=== PATIENT | female | born 1945 | race Caucasian/White ===

== ENCOUNTER → 2022-02-22 07:07 | Outpatient (CLI) | payer MEDICARE, OTHER, SELFPAY ==
--- NOTE | 2022-02-22 07:13 | DI.US.S_ITS ---
PROCEDURE: US PELVIC COMPLETE INDICATIONS: CYST TECHNIQUE: Real-time scanning was performed of the pelvic organs, with image documentation. Additional endovaginal scanning was necessary due to incomplete visualization of the adnexal and endometrial structures by transabdominal scanning. COMPARISON: None available. FINDINGS: Uterus: Uterus is anteverted and normal in size at 6.5 x 4.4 x 3 cm. The myometrium is heterogeneous. The endometrium measures 1.1 cm combined thickness. Endometrium has a heterogeneous appearance. No fibroids identified. Ovaries: Left ovarian multiloculated or thin septated cyst measuring 7.2 x 6.7 x 6.4 cm. No definite internal vascularity is seen. The larger cyst measures 6.6 cm and is anechoic. No mural nodule identified. Right ovary is not identified. Other: No pathologic free abdominal or pelvic fluid. IMPRESSION: 1. Abnormal endometrial thickening in this postmenopausal patient measuring 1.1 cm. -Recommend endometrial biopsy if not recently performed. 2. Large left ovarian multiloculated or mildly complex cyst measuring 7.2 cm. -This could be further evaluated with pelvic MRI with IV contrast. Excision could also be considered given its large size. 3. Right ovary is not seen. We strive to produce accurate, complete, and clear reports of imaging services. To assist us in improving patient care, this report was composed using standard report templates and voice recognition software. Therefore, it may contain abnormal punctuation, insertions and/or omissions. Occasional wrong-word or sound-alike substitutions may occur. Though we review the report and make efforts to correct it, we do recommend that the report be read carefully in proper context to recognize any text inaccuracies. Dictated by: Jefferson Locke M.D. on 02/22/2022 at 11:17 Approved by: Jefferson Locke M.D. on 02/22/2022 at 11:26
== END ==
PROVIDERS: Visit Provider Obstetrics & Gynecology
DX: R93.89 Abnormal findings on diagnostic imaging of other specified body structures (principal); N83.292 Other ovarian cyst, left side; R10.9 Unspecified abdominal pain
CPT/HCPCS: 76830; 76856

== ENCOUNTER → 2022-04-04 09:55 | Outpatient (CLI) | payer MEDICARE, OTHER, SELFPAY ==
[2022-04-04 10:24] LABS: COVID19 -Nasal RAPID Negative (Negative)
== END ==
PROVIDERS: Visit Provider Obstetrics & Gynecology
DX: Z20.822 Contact with and (suspected) exposure to COVID-19 (principal); Z01.812 Encounter for preprocedural laboratory examination
CPT/HCPCS: 87635; C9803

== ENCOUNTER 2022-04-05 06:33 | Day surgery (SDC) | payer MEDICARE, OTHER, SELFPAY ==
[2022-04-02 08:24] VITALS: BMI 33.5
[2022-04-05] VITALS (7 sets, daily range): BP systolic 105–139; BP diastolic 52–78; PULSE 67–90; RESP 1–20; TEMP 36.3–36.8; O2SAT 90–97; BMI 33.5
--- NOTE | 2022-04-05 | PATH_ITS ---
Note [facility] Accession Number: [id number] TESTS RESULT FLAG UNITS REF RANGE LAB Clinician Provided Cytology Information No. of containers..01 Other (Miscellaneous) Source: PELVIC CELL WASHINGS Clinician ICD10: R10.32 N83.202 DIAGNOSIS: PELVIC CELL WASHINGS NEGATIVE FOR MALIGNANT CELLS. THIS INTERPRETATION INCLUDES EVALUATION OF A CELL BLOCK. Pathologist ICD10: R10.32, N83.202 Signed out by: Kayla Pettit MD, Pathologist NPI- [id number] Performed by: Omid Mckeon, Rn Liaison ([facility]) Gross description: 20 CC, COLORLESS, CLEAR RECEIVED: FRESH IN ORANGE CAP CONTAINER. /[facility] 04/08/2022 1323 Local FLAG LEGEND: L-Low Normal,H-High Normal,LL-Alert Low,HH-Alert High <-Panic Low,>-Panic High,A-Abnormal,AA-Critical Abnormal Performed at: 01 =[facility] [address], [place] [address] Tito Reyez MD, Performed at: 01 [facility] [address], [place], [place] [id number] MD Tito Reyez MD Phone: [phone]
[2022-04-05] MEDS: LACTATED RINGERS 1,000 ML 100 ML IV (07:40)
--- NOTE | 2022-04-05 08:02 | PM.PREOP ---
Pre-operative Note COVID-19 COVID-19 status: Negative Result date/Date tested (Pos, Neg/Pending): 04/04/22 Criteria for continued procedure: Non-surgical alternatives not available or appropriate per current SOC Interval Note History & Physical reviewed/Exam performed by Physician: Yes Changes to H&P: No
[2022-04-05] MEDS: ACETAMINOPHEN IV 1,000 MG/100 ML VIAL 400 MG IV (09:02)
--- NOTE | 2022-04-05 09:18 | SUR.OPER ---
Lithotomy on padded OR bed, head on pillow, arms secured with gel pads and draw sheet. Legs secured in padded yellow fins stirrups.
[2022-04-05] MEDS: BUPIVACAINE 0.5% W/ EPI (PF) 30 ML VIAL INJ (09:29)
--- NOTE | 2022-04-05 10:41 | PM.GYNOP.1 ---
Operative Date/Time/Diagnoses Date of procedure: 04/05/22 Time of procedure: 09:50 Pre-op diagnosis: Left ovarian cyst Endometrial thickening Post-op diagnosis: same Procedure & Clinicians Procedure: Procedures Operation Date: 04/05/22 07:45 Actual Procedure Side Surgeon p Laparoscopic Salpingo-oophorectomy Bilateral Derrick Mason MD s Dilation and Curettage of the uterus Not Applicable Derrick Mason MD Indications: Tatyana is a 76-year-old , LMP between age 47 and 52 at the time of menopause who presents today with a 2 month history of left lower quadrant pain.? As part of her evaluation, the patient underwent an abdominal pelvic CT scan at [facility] on 02/07/2022 which showed a 6.6 by 7.6 x 6.5 cystic structure within the left adnexa possibly involving the left ovary concerning for neoplasm of ovarian origin.? No gross abnormality was seen in the uterus or right ovary.? Subsequent pelvic ultrasound performed on 02/22/2022 shows: FINDINGS:? ?? Uterus:? Uterus is anteverted and normal in size at 6.5 x 4.4 x 3 cm. The myometrium is heterogeneous. ? The endometrium measures 1.1 cm combined thickness.? Endometrium has a heterogeneous appearance.? No fibroids identified. ? Ovaries:? Left ovarian multiloculated or thin septated cyst measuring 7.2 x 6.7 x 6.4 cm. ?No definite internal vascularity is seen.? The larger cyst measures 6.6 cm and is anechoic.? No mural nodule identified.? Right ovary is not identified. ? Other:? No pathologic free abdominal or pelvic fluid. ? ? IMPRESSION:? 1. Abnormal endometrial thickening in this postmenopausal patient measuring 1.1 cm. -Recommend endometrial biopsy if not recently performed. ? 2. Large left ovarian multiloculated or mildly complex cyst measuring 7.2 cm.? -This could be further evaluated with pelvic MRI with IV contrast.? Excision could also be considered given its large size.? ? 3. Right ovary is not seen. CA 125 was apparently drawn by her primary care provider and is reported as 17.? Endometrial biopsy performed 02/26/2022 due to thickened endometrial stripe and the biopsy showed predominantly mucin with scant minute fragments of benign inactive glandular endometrial-type epithelium and rare endocervical cells.? No significant cytologic atypia and no malignancy identified.? She also denies any current or former use of hormone replacement therapy. The patient's pain has been present for a few months and she describes it as a dull discomfort which is intermittent and localized to the left lower quadrant.? She is noted no associated bowel or symptoms.? She does have occasional stress urinary incontinence and occasional urge incontinence.? Patient's last colonoscopy was in 2018 and no polyps or other abnormalities were seen at that time.? Patient has a past history of breast cancer on the right side in 2004 which was treated with mastectomy and chemo/radiation.? Patient has no family history of ovarian cancer. After consideration of all options, the patient has decided to move forward with laparoscopic bilateral salpingo-oophorectomy and due to the scant nature of the endometrial biopsy in the face of thickened endometrium, dilation and curettage will also be performed.? She presents today for her scheduled surgery. Surgeon: Derrick Mason Anesthesia Type: General Operative Notes Findings: 7-8 cm left ovary containing a smooth walled cyst containing clear viscous fluid. Right ovary is normal. Uterus is normal in size and sounds to 7 cm. Scan ECC and minimal EMC obtained. The abdominal cavity is normal to laparoscopic visualization. Atrophic vaginitis is present. A second-degree cystocele is noted with first-degree uterovaginal descent. Closure Type: primary Specimen(s): endometrial curettings, left tube & ovary, right tube & ovary and other (Endocervical curettings) Estimated blood loss (mL): 25 Blood products transfused: none Procedure in detail: With the patient under satisfactory general anesthesia in the modified dorsal lithotomy position, perineum, vagina, and abdomen were prepped and draped in the usual fashion for vaginal and laparoscopic surgery. A pre-surgical safety time-out was then taken in accordance with [facility] Main OR protocols. The umbilicus was infiltrated with 0.5% Marcaine with epinephrine and a 3 cm vertical incision was made in the skin of the inferior umbilicus. The dissection was carried down to the fascia which is incised transversely and stay sutures were placed at both angles. The dissection was carried down through the preperitoneal fat into the abdominal cavity and a March cannula was placed. The abdomen was then insufflated with carbon dioxide and 5 mm trocar and sleeves were placed in the left and right mid quadrant after infiltration with 0.5% Marcaine with epinephrine through 1 cm incisions. Using a 3 puncture technique the pelvis and abdomen were visualized with the findings as noted previously. Pelvic cell washings were taken and submitted. The fallopian tube on the left-hand side was grasped so as to elevate ovary and expose the infundibulopelvic ligament on the left. The infundibulopelvic ligament was then coagulated divided with a PowerSeal device and the dissection was carried across the mesosalpinx to the cornua where the tube and utero-ovarian ligament were coagulated and divided. Attention was then turned to the right side and the distal tube was elevated so as to expose the infundibulopelvic ligament on the right. The infundibulopelvic ligament was then coagulated and divided with the PowerSeal device and the dissection was carried across the mesosalpinx to the cornua where the proximal tube and utero-ovarian ligament were coagulated and divided. A large Endo-Catch bag was then used to retrieve the specimens and bring them up through the umbilical incision. The fluid from within the larger cyst was drained and evacuated within the bag so as to bring the specimens through the umbilical incision. Each ovary and tube was submitted as a separate pathologic specimen. The abdomen was re-insufflated and pelvis inspected. There were no abnormalities or areas of bleeding. The pneumoperitoneum was then vented and closure of the umbilical incision was performed with 0 Vicryl interrupted on the fascia and a 2-0 Vicryl in the subcutaneous tissues. 4-0 Monocryl was then used to close all the incisions using inverted interrupted stitches. Skin glue was then applied followed by appropriate dressings to each of the incisions. Attention was then turned to performance of the D&C. A weighted speculum was placed with a Rosen retractor placed anteriorl. The cervix was visualized and grasped single-tooth tenaculum on the anterior lip. The endocervical canal was then sequentially dilated to 6 mm with Hegar dilators and fractional curettage of the uterus was accomplished 1st by performance of an endocervical curettage followed by endometrial curettage. Separate endometrial and endocervical curetting specimens were submitted. The tenaculum was then removed from the cervix and no significant bleeding was noted from either puncture site. The weighted speculum was removed from the vagina and the procedure terminated. Patient was awakened transferred to the PACU trapping tolerated the procedure well. Complications: none Post-operative Condition: stable Disposition: PACU Plan for aftercare: Routine postoperative care.
== END 2022-04-05 10:31 | disposition home or self-care (01) ==
PROVIDERS: Referring Provider Obstetrics & Gynecology; Visit Provider Obstetrics & Gynecology
PROC: 0UT24ZZ Resection of Bilateral Ovaries, Percutaneous Endoscopic Approach (ICD-10-PCS; CPT 58661; principal; 2022-04-05 07:45)
PROC: (CPT 58120; 2022-04-05 07:45)
DX: N83.202 Unspecified ovarian cyst, left side (principal); N95.2 Postmenopausal atrophic vaginitis; N81.2 Incomplete uterovaginal prolapse
CPT/HCPCS: 58661; 58120; J0131; J1100; J2405; J2704; J3010